=== PATIENT | female | born 1975 | race American Indian/Alaskan Native ===

== ENCOUNTER → 2022-02-13 07:36 | Outpatient (CLI) | payer OTHER, SELFPAY ==
--- NOTE | 2022-02-13 07:39 | DI.US.S_ITS ---
PROCEDURE: US PELVIC COMPLETE INDICATIONS: Pelvic pressure, check IUD placement TECHNIQUE: Real-time scanning was performed of the pelvic organs, with image documentation. Additional endovaginal scanning was necessary due to incomplete visualization of the adnexal and endometrial structures by transabdominal scanning. COMPARISON: None. FINDINGS: Uterus: Uterus is anteverted and normal in size at 6.9 x 2.8 x 3 cm. The myometrium is homogeneous. The endometrium measures 4 mm combined thickness. An IUD is seen along the midline of the uterine fundus. The lateral margins of the cross bars are seen very close to the uterine lewis. Ovaries: Neither ovary is well seen. No adnexal masses are seen on either side. Other: No pathologic free abdominal or pelvic fluid. Overall scan quality is limited by bowel gas. IMPRESSION: An IUD is seen appropriately located at the uterine fundus. However, the cross bars seen nearly to the lateral margins of the relatively small uterus. Appropriate, please consider a follow-up pelvic CT for further evaluation. Limited study, without visualization of either ovary. We strive to produce accurate, complete, and clear reports of imaging services. To assist us in improving patient care, this report was composed using standard report templates and voice recognition software. Therefore, it may contain abnormal punctuation, insertions and/or omissions. Occasional wrong-word or sound-alike substitutions may occur. Though we review the report and make efforts to correct it, we do recommend that the report be read carefully in proper context to recognize any text inaccuracies. Dictated by: Austin Graham M.D. on 02/13/2022 at 8:29 Approved by: Austin Graham M.D. on 02/13/2022 at 8:32
== END ==
PROVIDERS: Referring Provider Obstetrics & Gynecology; Visit Provider Obstetrics & Gynecology
DX: R10.2 Pelvic and perineal pain (principal); Z97.5 Presence of (intrauterine) contraceptive device
CPT/HCPCS: 76830; 76856

== ENCOUNTER → 2024-04-27 08:18 | Outpatient (CLI) | payer OTHER, SELFPAY | PROVIDERS: Referring Provider Nurse Practitioner Family; Visit Provider Nurse Practitioner Family | DX: R06.02 Shortness of breath (principal); R05.1 Acute cough; Z87.891 Personal history of nicotine dependence; J98.8 Other specified respiratory disorders; R94.2 Abnormal results of pulmonary function studies | CPT/HCPCS: 94060; 94726; 94729 ==